=== PATIENT | female | born 1960 | race Caucasian/White ===

== ENCOUNTER → 2023-11-07 15:39 | Outpatient (REF) | payer BC, SELFPAY | LOC: WDC 15:39 | PROVIDERS: ATTENDING PHYSICIAN Obstetrics & Gynecology Gynecology; FAMILY PHYSICIAN Family Medicine | DX: Z12.31 Encounter for screening mammogram for malignant neoplasm of breast (principal) | CPT/HCPCS: 77063; 77067 ==

== ENCOUNTER → 2024-10-06 08:38 | Outpatient (REF) | payer BC, SELFPAY | LOC: MRI 3T 08:38 | PROVIDERS: ATTENDING PHYSICIAN Nurse Practitioner Family; FAMILY PHYSICIAN Family Medicine | DX: D35.2 Benign neoplasm of pituitary gland (principal) | CPT/HCPCS: 70553; A9575 ==

== ENCOUNTER → 2024-11-08 14:10 | Outpatient (REF) | payer BC, SELFPAY | LOC: WDC 14:10 | PROVIDERS: ATTENDING PHYSICIAN Obstetrics & Gynecology Gynecology; FAMILY PHYSICIAN Family Medicine | DX: Z12.31 Encounter for screening mammogram for malignant neoplasm of breast (principal) | CPT/HCPCS: 77063; 77067 ==

== ENCOUNTER → 2024-11-16 09:05 | Outpatient (REF) | payer BC, SELFPAY | LOC: WDC 09:05 | PROVIDERS: ATTENDING PHYSICIAN Obstetrics & Gynecology Gynecology; FAMILY PHYSICIAN Family Medicine | DX: R92.8 Other abnormal and inconclusive findings on diagnostic imaging of breast (principal) | CPT/HCPCS: 77065 ==

== ENCOUNTER → 2024-11-18 06:15 | Outpatient (REF) | payer BC, SELFPAY ==
--- NOTE | 2024-11-18 09:30 | OID.BR.INTR ---
[facility] Breast Navigator - Initial
- -
Date of Contact: 11/18/24
Met with patient. Patient given written information on navigator service available at [facility]. Will follow up as needed per protocol.
== END ==
LOC: WDC 06:15
PROVIDERS: ATTENDING PHYSICIAN Obstetrics & Gynecology Gynecology; FAMILY PHYSICIAN Family Medicine
DX: R92.1 Mammographic calcification found on diagnostic imaging of breast (principal)
CPT/HCPCS: 19081; 76098; 88305; 88342; 88360; A4648

== ENCOUNTER → 2024-12-20 08:46 | Outpatient (REF) | payer BC, SELFPAY | LOC: WDC 08:46 | PROVIDERS: ATTENDING PHYSICIAN Surgery | DX: D05.91 Unspecified type of carcinoma in situ of right breast (principal) | CPT/HCPCS: 19281; A4648 ==

== ENCOUNTER 2024-12-21 06:13 | Day surgery (SDC) | payer BC, SELFPAY ==
[2024-12-08 08:58] LABS: Hematocrit 42.6 % (37.0-47.0); Hemoglobin 14.1 g/dL (12.0-16.0); Mean Corp Hgb Conc. 33.1 g/dL (33.0-37.0); Mean Corpuscular Volume 93.0 fL (81.0-99.0); Platelet Count 365 10^3/uL (130-400); Red Cell Dist. Width 12.2 % (11.5-14.5)
[2024-12-08 09:42] LABS: ALT (SGPT) 98 U/L (0-35); AST (SGOT) 29 U/L (14-36); Albumin 4.7 g/dl (3.5-5.0); Alkaline Phosphatase 99 U/L (38-126); Blood Urea Nitrogen 10 mg/dl (7-17); Calcium 9.4 mg/dl (8.4-10.2); Carbon Dioxide 26 mmol/L (22-30); Chloride 102 mmol/L (98-107); Glucose 103 mg/dl (70-99); Potassium 4.6 mmol/L (3.5-5.1); Sodium 139 mmol/L (135-145); Total Protein 7.2 g/dl (6.3-8.2); eGFR > 60.00
[2024-12-08 09:48] LABS: Prealbumin (Transthyretin) 30.2 mg/dl (17.6-36.0)
[2024-12-08 10:01] LABS: Vitamin D, 25-OH*** 39.2 ng/mL (30-80)
[2024-12-08 14:08] VITALS: BMI 29.6
[2024-12-21 07:45] VITALS: BP 165/90
[2024-12-21 08:15] VITALS: BMI 29.6
[2024-12-21] MEDS: TYLENOL 1000 MG PO (08:21)
[2024-12-21] MEDS: LOVENOX 40 MG SC (08:26)
[2024-12-21] MEDS: NORMOSOL-R/PLASMALYTE-A 1000 IV (08:27)
[2024-12-21 08:31] LABS: Glucose - Point of Care 126 mg/dl (70-99)
[2024-12-21 10:17] VITALS: BP 124/58
--- NOTE | 2024-12-21 10:20 | W.IMMPOSTOP ---
Surgical Immed Post Op Note
-
Primary Surgeon: Don
Assisting Surgeon: None
Pre-op Diagnosis: Right DCIS
Post-op Diagnosis: Same
Procedure Performed: Right localized lumpectomy, oncoplastic mastoplasty
Anesthesia Type: TIVA
Specimen / Cultures: Right lumpectomy, margins
Estimated Blood Loss: 2cc
Complications: None
Operative Findings: Reflector, clip and calcs are in the specimen
--- NOTE | 2024-12-21 10:22 | OR.RPT ---
Addendum entered and electronically signed by Evette Ochoa MD 12/21/24 12:12:
Date of procedure is 12/21/24.
Original Note:
Operative Report
Operative Report
Date of procedure: 01/11
Surgeon: Don
Preoperative diagnosis: DCIS right breast
Postoperative diagnosis: Same
Procedure: Right localized lumpectomy and oncoplastic mastoplasty
The patient is a 64-year-old female who presented with an interval change on screening mammography. This led to a workup and biopsy showing DCIS of the right breast. She presents for breast conservation surgery. On the day prior to the procedure
the patient presented to the [facility] where a Jessi reflector was placed at the DCIS site. On the day of the procedure she presented to the same-day surgical services unit. She was prepped and verified site and procedure. DVT and
antibiotic prophylaxis were provided. She was taken to the operating room and in the supine position intravenous sedation was delivered. The right breast was prepped and draped in the usual sterile fashion and all team members performed an
appropriate timeout procedure.
All tissues were anesthetized with 1% lidocaine plain and a curvilinear incision was made overlying the area of highest Jessi signal. Skin flaps were elevated with the cautery in the oncoplastic plane. A wide lumpectomy was performed in a radial
fashion. Time out of body was noted and the specimen was oriented for the pathologist. Specimen radiography confirmed the presence of clip reflector and calcifications within it. Additional margins were harvested for permanent analysis from the
posterior, medial, superior, lateral, inferior, and anterior dimensions. These were oriented as well. This left a resulting defect of 6 x 5 cm therefore in an oncoplastic fashion an additional parenchymal incision was made to function as an
advancement flap. Hemoclips were placed in the resection cavity and Marcaine 0.5% plain was instilled into all tissues. The advancement flap was secured using simple interrupted 3-0 plain and subcutaneous tissues were closed with simple
interrupted 4-0 Monocryl. Skin was closed with a running subcuticular 4 Monocryl. Surgical glue and sterile compressive dressings were applied. All sponge needle and instrument counts were correct and the patient was transferred to same-day
surgical services for recovery
([id number])
[2024-12-21 10:30] VITALS: BP 139/78
[2024-12-21 10:45] VITALS: BP 166/81
[2024-12-21 11:00] VITALS: BP 176/73
== END 2024-12-21 11:45 | disposition home or self-care (01) ==
LOC: SDS 06:13
PROVIDERS: ATTENDING PHYSICIAN Surgery; FAMILY PHYSICIAN Family Medicine
DX: D05.11 Intraductal carcinoma in situ of right breast (principal)
CPT/HCPCS: 19301; 76098; 80053; 82306; 82962; 84134; 85027; 88305; 88307; 93005